=== PATIENT | female | born 1955 | race African-American/Black ===

== ENCOUNTER 2018-02-21 16:08 | Emergency (ER) | payer SELFPAY ==
[~2018-02-21 16:08] MED LIST: Sodium Chloride 0.9% 1,000 ML BAG ONE
[2018-02-21 16:53] LABS: #Basophils 0.1 thou/uL (0.0-0.2); #Eosinphils 0.2 thou/uL (0.0-0.7); #Lymphocytes 2.2 thou/uL (1.20-3.40); #Monocytes 0.4 thou/uL (0.11-0.59); %Basophils 1.6 % (0.0-1.0); %Eosinophils 4.1 % (0.0-10.0); %Lymphocytes 45.4 % (21.0-51.0); %Monocytes 8.1 % (0.0-10.0); %Neutrophils 40.8 % (42.0-75.0); Hemoglobin 12.6 g/dL (12.0-16.0); Mean Corpuscular HGB CONC 33.6 g/dL (32.0-36.0); Mean Corpuscular Hemoglobin 28.1 pg (27.0-31.0); Mean Corpuscular Volume 83.8 fl (81.0-99.0); Mean Platelet Volume 5.9 fL (7.4-10.4); Platelet Count 254 thou/uL (130-400); RBC Distribution Width 12.2 % (11.5-14.5); Red Blood Cell (RBC) Count 4.47 mill/uL (4.20-5.40); White Blood Cell (WBC) Count 4.9 thou/uL (4.8-10.8)
[2018-02-21 17:01] LABS: Anion Gap 16 mmol/L (10-20); BUN (Urea Nitrogen) 18 mg/dL (9.8-20.1); Calc. Creatinine Clearance 0 mL/min (70-130); Calcium 9.7 mg/dL (7.8-10.44); Carbon Dioxide 24 mmol/L (23-31); Chloride 107 mmol/L (98-107); Estimated GFR-MDRD 88; Glucose 97 mg/dL (80-115); Potassium 3.7 mmol/L (3.5-5.1); Sodium 143 mmol/L (136-145)
[2018-02-21 17:08] LABS: CKMB 2.7 ng/mL (0-6.6); Troponin I Less than 0.010 ng/mL (< 0.028)
[2018-02-21] MEDS ORDERED: Ondansetron ODT 4 MG TAB ONE (17:11)
[2018-02-21] MEDS ORDERED: Lorazepam 2 MG/ML VIAL ONE (17:11)
== END 2018-02-21 19:17 | disposition home or self-care (01) ==
LOC: MADERS 16:08
DX: R42 Dizziness and giddiness (principal); R11.0 Nausea; E11.9 Type 2 diabetes mellitus without complications; J45.909 Unspecified asthma, uncomplicated; I10 Essential (primary) hypertension
CPT/HCPCS: 80048; 82553; 84484; 85025; 93005; 96361; 96374; J2060; J7050; Q0162

== ENCOUNTER 2019-09-09 14:09 | Emergency (ER) | payer OTHER ==
[2019-09-09] MEDS ORDERED: Acetaminophen/Codeine 30-300mg Tablet ONE (15:26)
== END 2019-09-09 16:09 | disposition home or self-care (01) ==
LOC: MADERS 14:09
DX: M54.12 Radiculopathy, cervical region (principal); J06.9 Acute upper respiratory infection, unspecified; E11.9 Type 2 diabetes mellitus without complications; I10 Essential (primary) hypertension; J45.909 Unspecified asthma, uncomplicated; Z79.891 Long term (current) use of opiate analgesic; Z79.899 Other long term (current) drug therapy; Z79.82 Long term (current) use of aspirin
CPT/HCPCS: 87804; J7620

== ENCOUNTER 2020-01-12 14:31 | Outpatient (CLI) | payer MEDICARE ==
--- NOTE | 2020-01-12 14:59 | RAD ---
CHEST 2 VIEWS: COMPARISON: 12/24/2016. HISTORY: Asthma exacerbation. FINDINGS: Normal cardiac silhouette. Pulmonary vessels and hilum are normal. Costophrenic angles are clear. No consolidation or mass. No pneumothorax or acute osseous abnormalities. Stable calcified lymph no alonzo in the left mediastinum. IMPRESSION: No acute cardiopulmonary process. POS: P[facility]
== END 2020-01-12 14:32 | disposition home or self-care (01) ==
LOC: MADRAD 14:31 → EDBD 14:31 → MADRAD 14:32
PROVIDERS: ATTEND Family Medicine
DX: J45.901 Unspecified asthma with (acute) exacerbation (principal)
CPT/HCPCS: 71046

== ENCOUNTER 2020-03-20 15:54 | Outpatient (CLI) | payer MEDICARE, MEDICAID ==
--- NOTE | 2020-03-20 16:20 | RAD ---
CHEST TWO VIEWS: 03/20/20 INDICATION: History of recurrent cough. COMPARISON: Prior exam of 01/12/20. FINDINGS: Chronic lung changes are stable appearing. Calcified lymph nodes of the mediastinum are similar appea ring. No acute air space opacity or pleural effusions are evident. No acute osseous abnormality is no grace. IMPRESSION: No acute abnormality. POS: BH
== END 2020-03-20 15:55 | disposition home or self-care (01) ==
LOC: MADRAD 15:54
PROVIDERS: ATTEND Family Medicine
DX: R05 Cough (principal)
CPT/HCPCS: 71046

== ENCOUNTER 2021-04-24 14:36 | Outpatient (CLI) | payer MEDICARE, MEDICAID | END 2021-04-24 14:37 | disposition home or self-care (01) | LOC: MADLAB 14:36 → MADRAD 14:37 | PROVIDERS: ATTEND Family Medicine | DX: M77.8 Other enthesopathies, not elsewhere classified (principal) ==

== ENCOUNTER 2021-08-11 11:56 | Outpatient (CLI) | payer MEDICARE, MEDICAID | END 2021-08-11 11:57 | disposition home or self-care (01) | LOC: MADRAD 11:56 | PROVIDERS: ATTEND Family Medicine | DX: R07.81 Pleurodynia (principal) ==

== ENCOUNTER 2022-05-05 10:12 | Outpatient (CLI) | payer MEDICARE, MEDICAID | END 2022-05-05 10:13 | disposition home or self-care (01) | LOC: MADLAB 10:12 → MADRAD 10:13 | PROVIDERS: ATTEND Family Medicine | DX: M25.562 Pain in left knee (principal); M17.12 Unilateral primary osteoarthritis, left knee ==